=== PATIENT | female | born 1960 | race Caucasian/White ===

== ENCOUNTER 2017-01-23 14:45 | Emergency (ER) | payer OTHER, MEDICARE ==
[~2017-01-23 14:45] MED LIST: ADVAIR 25028 BLISTE1 PO; ALBUTEROL17 GM INH; ALPRAZOLAM0.5 MG; AMILORIDE HCL5 M1 PO; AMITIZA24 MCG; ASMANEX0 IH; ASTEPRO205.5 MCG/; BUTRANS1 EAC1 TD; COZAAR100 MG PO; COZAAR25 MG; CRESTOR5 MG/TAB PO; CYMBALTA60 MG; DIAZEPAM2 M2 PO; DIAZEPAM2 MG PO; DILAUDID2 MG PO; EFFER-K 10 MEQ10 ME1 PO; EXALGO12 MG PO; FAMVIR125 MG; FAMVIR250 MG PO; FAMVIR500 M2 PO; GLUCOPHAGE1000 MG; KLOR-CON M2020 MEQ PO; LEVAQUIN500 MG PO; LIPITOR20 M1 PO; LOVAZA1 GM PO; MAG 6464 MG; METFORMIN HCL1000 MG PO; MIDAMOR5 MG PO; MORPHINE SU15 MG/TAB PO; MORPHINE SULFAT3 PO; MORPHINE SULFAT60 M3 PO; MSIR15 MG; NORCO 5/325 TAB1 TAB PO; PATADAY2.5 M1 OP; PROTONIX40 M1 PO; PROTONIX40 MG; RESTORIL7.5 MG; ROZEREM8 MG; SAM E PO; SAVELLA25 MG; SIMVASTATIN20 MG PO; SLOW RELEASE47.5 MG PO; SYNTHROID150 MCG; SYNTHROID150 MCG PO; TOPIRAMATE100 MG PO; TRAZODONE50 MG; VIIBRYD40 MG PO; VITAMIN D400 UNIT; VITAMIN D5000 UNIT PO; VITAMIN D50000 UNI2 PO; WELLBUTRIN SR100 M2 PO; ZANAFLEX4 M; ZANAFLEX4 M1 PO; ZOCOR20 MG; ZYRTEC1010 PO; [UNRECOGNIZED DRUG - OTHER] TP
== END 2017-01-23 16:35 ==
LOC: EDMED 14:45
DX: S39.012A Strain of muscle, fascia and tendon of lower back, initial encounter (principal); G89.29 Other chronic pain; V49.40XA Driver injured in collision with unspecified motor vehicles in traffic accident, initial encounter; Y92.410 Unspecified street and highway as the place of occurrence of the external cause
CPT/HCPCS: J1170